=== PATIENT | male | born 1960 | race Caucasian/White ===

== ENCOUNTER 2017-07-21 10:17 | Outpatient (CLI) | payer OTHER ==
--- NOTE | 2017-07-21 12:35 | Diagnostic Imaging Report ---
Indication: Pain, jammed cyst Technique: 3 views right hand Comparison: none Findings: There is questionably an old healed fracture deformity of the mid shaft of the fifth metacarpal. No definite acute fractures. No dislocations. The joint spaces are preserved. Impression: No acute bony trauma
== END 2017-07-21 12:17 | disposition home or self-care (01) ==
LOC: RAD 10:17
DX: M79.641 Pain in right hand (principal)

== ENCOUNTER 2018-03-24 11:28 | Outpatient (CLI) | payer OTHER ==
--- NOTE | 2018-03-24 12:59 | Diagnostic Imaging Report ---
Indication: left shoulder pain Findings: 3 views of the left shoulder were obtained. Alignment of the left shoulder is normal. No acute fracture is identified. Soft tissues are unremarkable. Impression: No acute injury
== END 2018-03-24 13:28 | disposition home or self-care (01) ==
LOC: RAD 11:28
DX: M25.512 Pain in left shoulder (principal)